=== PATIENT | male | born 1965 | race Caucasian/White ===

== ENCOUNTER 2021-06-09 16:00 | Outpatient (CLI) | payer BC, SELFPAY ==
[2021-06-09 16:13] LABS: Hematocrit 39.7 % (40.0-54.0); Hemoglobin 13.5 g/dL (14.0-18.0); Mean Corpuscular Volume 102.8 fL (78.0-102.0); Mean Platelet Volume 9.5 fl (8.7-11.0); Platelet Count Result 182 K/mm3 (150-420); Red Blood Count 3.86 M/mm3 (4.70-6.10); Red Cell Distribution Width 11.9 % (11.6-14.4)
[2021-06-09 17:35] LABS: Alanine Aminotransferase 20 U/L (16-63); Albumin Level 4.4 g/dL (3.4-5.0); Alkaline Phosphatase 66 U/L (46-116); Anion Gap 7 mmol/L (8-16); Aspartate Amino Transferase 17 U/L (15-37); Bilirubin,Total 0.5 mg/dL (0.00-1.00); Blood Urea Nitrogen 8 mg/dL (7-18); Calcium 9.2 mg/dL (8.5-10.1); Carbon Dioxide 29 mmol/L (21-32); Chloride 99 mmol/L (98-108); Cholesterol 171 mg/dL (0-200); Estimated Glomerular Filt Rate > 60; Glucose 99 mg/dL (70-99); HDL Direct 77 mg/dL (40-60); LDL Cholesterol Calculated 79 mg/dL (<130); Osmolality Calculated 278 mOsm/kg (285-295); Potassium 4.7 mmol/L (3.5-5.1); Sodium 135 mmol/L (136-145); Thyroid Stimulating Hormone Reflex 0.32 u/IU/mL (0.36-3.74); Triglycerides 76 mg/dL (0-150)
[2021-06-09 18:08] LABS: Free T4 Free Thyroxine Reflex 0.94 ng/dL (0.76-1.46)
== END 2021-06-09 16:01 | disposition home or self-care (01) ==
LOC: CHSLAB 16:05
PROVIDERS: PCP Family Medicine; Visit Provider Family Medicine
DX: R31.9 Hematuria, unspecified (principal); I10 Essential (primary) hypertension; E11.9 Type 2 diabetes mellitus without complications
CPT/HCPCS: 36415; 80053; 80061; 84153; 84439; 84443; 85027

== ENCOUNTER 2022-03-23 15:20 | Outpatient (CLI) | payer BC, SELFPAY ==
--- NOTE | ~2022-03-23 | CT_ITS ---
. EXAMINATION: CT abdomen pelvis wo con DATE: 03/23/2022 15:33 INDICATION: Right lower quadrant abdominal pain, worse with coughing TECHNIQUE: Computed tomography (CT) of the abdomen and pelvis was performed without intravenous contr ast. Automated exposure control and iterative reconstruction technique were employed. Exam dose: 274 .72 mGy-cm total exam DLP. COMPARISON: None. FINDINGS: Emphysematous changes of the lungs. No infiltrate or consolidation at the lung bases. Leslie l heart size. No pericardial or pleural effusion. The liver, gallbladder, bile ducts, pancreas, pancreatic duct and spleen appear unremarkable. The adrenal glands are unremarkable. Approximately 1.8 cm exophytic lateral upper pole probable left renal cyst. No urinary tract calculus or hydroureteronephrosis. There is atherosclerotic calcification but normal caliber of the abdominal aorta, iliac and femoral a rteries. No intraperitoneal or retroperitoneal or pelvic mass lesion or adenopathy or ascites. Some small bowel is situated near the mouth of the right inguinal canal. Small sliding hiatal hernia. Normal appendix. No bowel obstruction, bowel wall thickening, pneumatosi s or intraperitoneal free air. There is diffuse thickening of the urinary bladder wall, likely due to prostate enlargement/bladder o utlet obstruction. Mild anterior wedge compression fracture deformity of T12. Moderately prominent compression fracture deformity of L2. IMPRESSION: Emphysema Probable exophytic 1.8 cm upper pole left renal cyst Small sliding hiatal hernia Normal appendix Diffuse urinary bladder wall thickening, likely due to prostate enlargement Small bowel situated near the mouth of the right inguinal canal. Compression fracture deformities of T12 and L2 Reviewed, dictated and finalized at [facility]. Reviewed, dictated and finalized at location [facility]. T MGR
== END 2022-03-23 15:21 | disposition home or self-care (01) ==
LOC: CHSIMG 15:21
PROVIDERS: PCP Family Medicine; Visit Provider Family Medicine
DX: K46.9 Unspecified abdominal hernia without obstruction or gangrene (principal); J43.9 Emphysema, unspecified; K44.9 Diaphragmatic hernia without obstruction or gangrene; R93.41 Abnormal radiologic findings on diagnostic imaging of renal pelvis, ureter, or bladder; M48.54XA Collapsed vertebra, not elsewhere classified, thoracic region, initial encounter for fracture
CPT/HCPCS: 74176

== ENCOUNTER 2022-03-31 15:28 | Outpatient (CLI) | payer BC, SELFPAY ==
--- NOTE | ~2022-03-31 | US_ITS ---
EXAMINATION: US retroperitoneal limited DATE: 03/31/2022 16:39 INDICATION: N40.0 - Benign prostatic hyperplasia without lower urinar... TECHNIQUE: Multiple grayscale and Doppler ultrasound images of the kidneys were obtained. COMPARISON: CT abdomen and pelvis 03/23/2022. FINDINGS: The right kidney measures 10.0 x 5.0 x 5.0 cm. The left kidney measures 10.0 x 6.0 x 5.0 cm. The kidn eys demonstrate normal parenchymal echogenicity. 1.9 cm upper pole left renal mass with an internal s eptation and internal echogenicity within a portion of the mass. There is no hydronephrosis. The blad sapna is well-distended with a thickened wall. 100.2 mL post void residual. IMPRESSION: Complicated left upper pole renal cyst. Recommend renal CT or MRI for further characterization. Nonsp ecific bladder wall thickening. 100.2 mL post void residual Reviewed, dictated and finalized at location [facility]. 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 Recommend renal CT or MRI for further c haracterization. Nonspecific bladder wall thickening. 100.2 mL post void residu al
[2022-03-31 16:23] LABS: Prostate Specific Antigen 1.6 ng/mL (< OR = 4.0)
== END 2022-03-31 15:29 | disposition home or self-care (01) ==
LOC: CHSIMG 15:30
PROVIDERS: PCP Family Medicine; Visit Provider Family Medicine
DX: Z00.00 Encounter for general adult medical examination without abnormal findings (principal); N40.0 Benign prostatic hyperplasia without lower urinary tract symptoms; N28.1 Cyst of kidney, acquired
CPT/HCPCS: 36415; 76775; 84153; G0103

== ENCOUNTER 2022-04-07 08:06 | Outpatient (CLI) | payer BC, SELFPAY ==
--- NOTE | ~2022-04-07 | CT_ITS ---
EXAMINATION: CT abdomen pelvis w con DATE: 04/07/2022 10:53 INDICATION: Left kidney mass. TECHNIQUE: Computed tomography (CT) of the abdomen and pelvis was performed with 100 mL Omnipaque 350 intravenous contrast. Automated exposure control and iterative reconstruction technique were employe d. The dose-length product was 256.05 mGy-cm. COMPARISON: Ultrasound kidneys 03/31/2022, CT abdomen and pelvis 117/ FINDINGS: The visualized portions of the lung bases demonstrate mild atelectasis on the right. No ple ural effusion. There is a left posterior diaphragmatic hernia containing fat. The heart size is alice l. No pericardial effusion. There is a 6 mm cyst in the liver. The gallbladder, spleen, pancreas, and adrenal glands are normal. There is cortical thinning of the kidneys. There is a 1.8 cm cyst in left kidney. The prostate is mildly enlarged. There is diffuse bladder wall thickening, likely secondary to chronic outlet obstruction. There are no dilated loops of bowel. The appendix is normal. There is a right inguinal hernia containing nonobstructed small bowel. There are no pathologically enlarged ly mph nodes. There is no free intraperitoneal fluid. There are old healed fractures of left superior an d inferior pubic rami. There is a chronic burst fracture of L2. There is a chronic left L5 pars defec t. IMPRESSION: 1. 1.8 cm benign cyst in left kidney. 2. Right inguinal hernia containing nonobstructed small bowel. Reviewed, dictated and finalized at location A. 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
[2022-04-07 11:41] LABS: Estimated Glomerular Filt Rate > 60
== END 2022-04-07 08:07 | disposition home or self-care (01) ==
LOC: CHSIMG 08:09
PROVIDERS: PCP Family Medicine; Visit Provider Family Medicine
DX: N28.1 Cyst of kidney, acquired (principal); K40.90 Unilateral inguinal hernia, without obstruction or gangrene, not specified as recurrent
CPT/HCPCS: 74177; Q9967

== ENCOUNTER 2022-04-19 14:52 | Outpatient (CLI) | payer BC, SELFPAY | END 2022-04-19 14:53 | disposition home or self-care (01) | LOC: ANHSURGERY 14:58 | PROVIDERS: PCP Family Medicine; Visit Provider Surgery | DX: K40.90 Unilateral inguinal hernia, without obstruction or gangrene, not specified as recurrent (principal); Z01.818 Encounter for other preprocedural examination | CPT/HCPCS: 36415; 86850; 86900; 86901 ==

== ENCOUNTER 2022-04-23 00:54 | Day surgery (SDC) | payer BC, SELFPAY ==
[2022-04-16 11:32] VITALS: BMI 21.0
--- NOTE | 2022-04-16 11:36 | PC.NURSE ---
Report to the Outpatient Waiting Room, entrance under the green pavilion located off [facility], at time 10:00 on date 04/23/22. Planned Procedure Time: 12:00. Time changes happen often and if your time is changed the preop area will call you the afternoon before. - You and your visitor will be asked to self-screen and do not enter if you have any COVID symptoms. - Only one visitor is requested with a max of two and NO children visitors are allowed at this time. - The patient visitor may be requested to leave or wait in car when not with patient due to distancing restrictions. - A mask is optional within the hospital at this time. Patients may have clear liquids (water, carbonated beverages, clear teas, apple juice) until 3 hours prior to surgery (9:00) with a maximum of 20 ounces. - No food from midnight until time of surgery Take the following medications with a SIP of water the morning of surgery: NONE DO NOT STOP ANY OF YOUR OTHER PRESCRIPTION MEDICATIONS PRIOR TO SURGERY?EXCEPT THE FOLLOWING Medications to discontinue per physician: N/A Date to take last dose: N/A Please no make-up, nail macedonian, hairspray, perfume, deodorant, or body powder the day of surgery. No jewelry (including any body piercings) or valuables the day of surgery, leave them at home. Please take a shower or bath the night before, or the morning of, surgery with an antibacterial soap (HIBICLENS). Wear comfortable, loose fitting clothing. - Jewelry must be removed prior to entering the operating room. Rings and piercings that are not removed may be cut off. - The hospital will not accept responsibility for valuables. - Please leave all valuables, including medications, at home the day of surgery. If you are going home after surgery, a licensed dedicated truck driver must drive you home. - NO public transportation without another adult if you receive anesthesia. - We recommend that an adult stay with you for 24 hours following discharge. - We also recommend that you do not drive, make important decision, drink alcoholic beverages, or take any drugs that were not prescribed by your health care provider for at least 24 hours after your discharge time. Follow any additional instructions given to you from your surgeon. If you or anyone in your household have experienced Covid symptoms in the past week, please notify your surgeon or the nurse liaison at the phone number below for possible testing. Telephone instructions given to FLOR LUZ and asked if any additional questions and then verbalized understanding. Patient advised to call surgeon office or pre surgery nurse liaison [phone] if any additional questions.
--- NOTE | 2022-04-22 10:43 | WPDANESEPPF ---
Anes - Initial Pre Proc Eval Procedure: Operation Date: 04/23/22 12:00 Proposed Procedures p Laparoscopic Right Inguinal Hernia Repair with Mesh, Davinci Assisted - Carlos Manuel Walker DO Date/Time: 04/22/22 10:43 Surgeon: Carlos Manuel Walker DO Pre Op Diagnosis: right inguinal Hernia Patient Data Age: 57 Gender: M Height: 1.83 m Weight: 70.31 kg Allergies Allergy/AdvReac Type Severity Reaction Status Date / Time No Known Allergies Allergy Verified 04/16/22 11:31 Home Medications Medication Instructions Recorded Confirmed Type lisinopril 20 mg tablet 20 mg PO DAILY #90 tabs 01/18/22 04/19/22 Rx meloxicam 7.5 mg tablet 7.5 mg PO DAILY #90 tabs 01/18/22 04/19/22 Rx umeclidinium 62.5 mcg-vilanterol 1 inh inhalation DAILY #60 ea 01/18/22 04/19/22 Rx 25 mcg/actuation powdr for inhalation (Anoro Ellipta) finasteride 5 mg tablet 5 mg PO DAILY #90 tabs 03/26/22 04/19/22 Rx tamsulosin 0.4 mg capsule (Flomax) 0.4 mg PO DAILY #90 caps 03/26/22 04/19/22 Rx Patient hx anesthesia problems: none Family hx anesthesia problems: none Results Review: All pre-operative results and documents have been reviewed as part of the pre-operative evaluation. [facility] Past Medical History Medical History Hypertension Surgical History Surgical History History of back surgery 16 yrs ago Family History Family History Father Malignant neoplasm of prostate Social History Social History Smoking packs per day: 1 Smoking cigarettes per day: 20.0 Years smoked: 25 Smoking pack-years: 25.00 Smoking status: Current every day smoker Tobacco type: cigarettes Alcohol intake: current Drinks per week: 8 Substance use: never Substance use type: does not use Living arrangements: with family Spiritual care concerns: No Anes - Eval Final PreProcedure Day of Procedure 04/22/22 10:43 Patient weight: normal Heart: regular rate and rhythm Lungs: clear to auscultation Airway: Mallampati scale class II Neurological: alert and oriented Last oral intake: >/= 8 hours ASA classification: III Emergent: no Anesthetic plan: proceed Anesthesia type and monitoring: general ETT and standard monitoring Results Review: All pre-operative results and documents have been reviewed as part of the pre-operative evaluation. Informed Consent: The patient's anesthetic plan and its attendant risks and benefits were discussed with the patient/family/POA. Questions were solicited and answers provided to the satisfaction of the patient/family/POA.
[2022-04-23] VITALS (11 sets, daily range): BP systolic 137–168; BP diastolic 77–103; PULSE 70–96; RESP 10–16; TEMP 36.8; O2SAT 100
[2022-04-23] MEDS: LACTATED RINGERS 1,000 ML 30 ML IV CONT ×2 (10:30→14:45)
--- NOTE | 2022-04-23 11:05 | WPDHPUPDATE1 ---
History and Physical Update Update Date/Time: 04/23/22 11:05 History and Physical has been reviewed, including an updated exam of the patient. There are NO changes in the patient's condition. Risks, benefits, and alternatives have been discussed and questions answered. Patient agrees to proceed with procedure.
[2022-04-23] MEDS: KETOROLAC 15 MG/ML VIAL (*BKC) IV PUSH (11:09)
[2022-04-23] MEDS: ACETAMINOPHEN 500 MG TABLET 1000 MG PO (11:09)
[2022-04-23] MEDS: ceFAZolin 2 GM/D5W 50 ML 2 GM/50 ML BAG IVPB (12:40)
[2022-04-23] MEDS: BUPIVACAINE/EPINEPHRINE 0.5% 10 ML VIAL 30 ML INFILTRATE (13:09)
--- NOTE | 2022-04-23 13:44 | W.PM.PROC2 ---
Procedure Note - Detailed Date of Procedure 04/23/22 Pre-op Diagnosis right inguinal Hernia Post-op Diagnosis Same (Indirect RIH) Procedure Performed Laparoscopic right inguinal hernia repair with mesh, da Hilario assisted Surgeon Carlos Manuel Walker, Anesthesia General and Local (0.5% bupivacaine with epinephrine) Indications this is a 57-year-old man who presented with right groin pain that started several weeks ago. He also notices a bulge associated with this. He was found to have a reducible right inguinal hernia physical exam. This pain had been worsening past couple weeks. Discussions were made with the patient about treatment options and decision was made to proceed with robotic assisted laparoscopic right inguinal hernia repair with mesh. Findings Laparoscopic right inguinal hernia repair was performed. Patient was found to have an indirect right inguinal hernia. Robotic transabdominal preperitoneal approach was utilized for repair. Once a wide enough preperitoneal pocket was created, I then placed a large right Bard 3DMax mid mesh overlying the entire right myopectineal orifice. No specimens were obtained for pathology. Description of Procedure Procedure as well as risks, benefits, and alternatives were discussed with the patient. Written consent was obtained and placed in chart prior to procedure. Patient was brought back to surgical suite. He was placed supine on operating table. Time-out was done to confirm patient and procedure. he was then intubated by Anesthesia Department. his abdomen was prepped and draped in sterile fashion using chlorhexidine prep. 0.5% bupivacaine with epinephrine was infiltrated at each location for incision. A 12 millimeter transverse incision was made just superior to the umbilicus using a 15 blade scalpel. Blunt dissection was carried out down to the linea alba. A vertical incision was made at the linea alba using a 15 blade scalpel. The peritoneum was then bluntly entered. A 12 millimeter trocar was inserted and carbon dioxide insufflation was used to create a pneumoperitoneum. A camera was inserted and the abdominal cavity was inspected. The patient was placed in slight Trendelenburg position. An 8 millimeter incision was made on the right lateral abdomen and an 8 millimeter trocar was inserted under direct visualization. Another 8 millimeter incision was made in the left lateral abdomen and an 8 millimeter trocar was inserted under direct visualization. The robotic arms were brought up to the patient's bedside and secured to the ports. The camera and instruments were inserted. I then moved over to the robotic console and took control of the camera and instruments. After careful inspection of the abdominal cavity, I began scoring the peritoneum along the right lower quadrant using scissors with electrocautery. The preperitoneal plane was entered and this was carefully dissected caudally along the inferior epigastric vessels. Careful dissection with scissors with electrocautery and blunt dissection was used to continue this dissection. I dissected far enough laterally to allow for mesh placement, and also dissected medially to identify the pubic arch and Juan Jose's ligament. The hernia sac was identified and carefully dissected posteriorly. The cord contents were also identified and the peritoneum was carefully dissected far enough posteriorly to allow for mesh placement. Once an adequate pocket was created, I then placed the mesh within the preperitoneal pocket and carefully unfolded it. The mesh was centered on the hernia defect with adequate overlap circumferentially. The inferior edge of the mesh was inspected to ensure that it was far enough away from the peritoneal edge. The mesh appeared in proper position overlying the entire myopectineal orifice. The mesh was secured using 3-0 Vicryl simple interrupted sutures in Juan Jose's ligament, the superior medial edge, and superior lateral edge o
== END 2022-04-23 17:12 | disposition home or self-care (01) ==
PROVIDERS: PCP Family Medicine; Visit Provider Surgery
PROC: 8E0Y4CZ Robotic Assisted Procedure of Lower Extremity, Percutaneous Endoscopic Approach (ICD-10-PCS; CPT 49650; principal; 2022-04-23 12:00)
DX: K40.90 Unilateral inguinal hernia, without obstruction or gangrene, not specified as recurrent (principal); I10 Essential (primary) hypertension; Z79.51 Long term (current) use of inhaled steroids; F17.210 Nicotine dependence, cigarettes, uncomplicated
CPT/HCPCS: 49650; S2900; A9270; C1781; J0690; J1100; J1170; J1885; J2250; J2405; J2704; J2710; J3010; J7120

== ENCOUNTER 2024-05-04 10:54 | Outpatient (CLI) | payer BC, SELFPAY ==
[2024-05-04 11:25] LABS: Basophils Absolute Auto 0.04 K/mm3 (0.00-0.10); Basophils Percent Auto 0.8 % (0.0-1.0); Eosinophils Absolute Auto 0.07 K/mm3 (0.02-0.50); Eosinophils Percent Auto 1.4 % (1.0-6.0); Hematocrit 38.8 % (40.0-54.0); Hemoglobin 13.2 g/dL (14.0-18.0); Immature Granulocyte Absolute 0.02 K/mm3 (0.00-0.00); Immature Granulocyte Percent A 0.4 % (0.0-0.0); Lymphocytes Absolute Auto 1.06 K/mm3 (1.10-4.50); Lymphocytes Percent Auto 20.6 % (18.0-42.0); Mean Corpuscular Hemoglobin 33.9 pg (27.0-31.0); Mean Corpuscular Volume 99.7 fL (78.0-102.0); Monocytes Absolute Auto 0.76 K/mm3 (0.10-0.90); Monocytes Percent Auto 14.8 % (2.0-11.0); Platelet Count Result 163 K/mm3 (150-420); Red Blood Count 3.89 M/mm3 (4.70-6.10); Red Cell Distribution Width 12.4 % (11.6-14.4); White Blood Count 5.2 K/mm3 (4.8-10.8)
[2024-05-04 11:45] LABS: Hemoglobin A1C 5.2 % (<5.7)
[2024-05-04 12:07] LABS: Alanine Aminotransferase 19 U/L (16-63); Albumin Level 4.5 g/dL (3.4-5.0); Alkaline Phosphatase 87 U/L (46-116); Anion Gap 12 mmol/L (4-12); Aspartate Amino Transferase 23 U/L (15-37); Blood Urea Nitrogen 14 mg/dL (7-18); Calcium 9.7 mg/dL (8.5-10.1); Carbon Dioxide 27 mmol/L (21-32); Chloride 97 mmol/L (98-108); Cholesterol 197 mg/dL (0-200); Estimated Glomerular Filt Rate > 60; Glucose 102 mg/dL (70-99); HDL Direct 118 mg/dL (40-60); LDL Cholesterol Calculated 72 mg/dL (<130); Osmolality Calculated 282 mOsm/kg (285-295); Potassium 4.6 mmol/L (3.5-5.1); Sodium 136 mmol/L (136-145); Total Protein 7.2 g/dL (6.4-8.2); Triglycerides 37 mg/dL (0-150)
[2024-05-04 12:23] LABS: Thyroid Stimulating Hormone Reflex 0.54 u/IU/mL (0.36-3.74)
== END 2024-05-04 10:55 | disposition home or self-care (01) ==
LOC: CHSIMG 10:55
PROVIDERS: PCP Nurse Practitioner Family; Visit Provider Nurse Practitioner Family
DX: Z00.00 Encounter for general adult medical examination without abnormal findings (principal); Z12.2 Encounter for screening for malignant neoplasm of respiratory organs; Z87.891 Personal history of nicotine dependence; R06.02 Shortness of breath
CPT/HCPCS: 36415; 71271; 80053; 80061; 83036; 84443; 85025